=== PATIENT | male | born 1975 | race Caucasian/White ===

== ENCOUNTER 2018-01-13 04:32 | Emergency (ER) | payer OTHER, SELFPAY ==
[2018-01-13 04:34] VITALS: BP 141/80; PULSE 84; RESP 16; TEMP 36.9; O2SAT 98; BMI 28.6
--- NOTE | 2018-01-13 04:41 | EKG12_ITS ---
Test Reason : SYNCOPE Blood Pressure : / mmHG Vent. Rate : 074 BPM Atrial Rate : 074 BPM P-R Int : 148 ms QRS Dur : 114 ms QT Int : 380 ms P-R-T Axes : 022 -13 027 degrees QTc Int : 421 ms Normal sinus rhythm Normal ECG Confirmed by PAPO FRANCO, FREDDY ([id number]), editor in chief newspaper DENISSE LIM ([id number] on 01/14/2018 3:49:37 PM Referred By: DR TORIBIO Confirmed By:FREDDY BARROS MD
--- NOTE | 2018-01-13 04:41 | CT_ITS ---
HISTORY: SYNCOPE THIS AM X 2,ELEVATED BP,DIZZY AND LIGHT HEADED TECHNIQUE: Multiple axial images were obtained of the brain without intravenous contrast. A radiation dose optimization technique was used for this scan. IV Contrast dosage and agent: None. COMPARISON: None FINDINGS: The ventricles are normal in size. Normal barrett-white matter differentiation. No intracranial mass, hemorrhage, or acute intracranial disease. Posterior fossa structures are on remarkable. No suspicious extra-axial fluid collection. Extensive pansinusitis. No associated orbital disease is seen. CT/Brain/Head without Contrast IMPRESSION: 1. Normal CT brain without contrast. 2. Extensive pansinusitis. Individualized dose optimization techniques were used for this CT. at 0547 Reported and signed by: Raheel Wilson MD Electronically Signed: Raheel Wilson, at 5:22 EST Tel , Service support ,
[2018-01-13 04:46] VITALS: BP 117/73; BP 128/81; BP 133/76; PULSE 75; PULSE 84; PULSE 90
[2018-01-13] MEDS: 0.9% Normal Saline 1,000 ML 1000 ML IV (04:50)
--- NOTE | 2018-01-13 04:51 | ED.DCSUM_ITS ---
- ER Visit Summary Date of Service: 01/13/18 Chief Complaint: Syncopal episode History of Present Illness: The patient is a 42 M presents to the emergency department after syncopal episode. Patient states he woke in his normal state of health. He states he was getting ready for work and was going to coffee. He states that he was walking towards another room. He became acutely nauseated and lightheaded. He states the next thing he knew, he was on the ground. He did strike his nose across the table. He states he got back up because he was feeling better. He states he got lightheaded again with standing. He laid down but did not pass out. Patient denies any prior history of syncope. He denies any chest pain or shortness of breath. He denies any family history of sudden cardiac . He does take Vicodin for chronic back pain, but has not taken any today. He states yesterday, he had some chills and what he felt was a head cold. States today when he woke, he was feeling improved. Physical Examination: Vital signs reviewed General: Well-nourished, well-developed Head: Normocephalic, abrasion across the bridge of the nose without step-off, no nasal septal hematoma Eyes: Pupils equal and reactive, extraocular muscles intact Neck, supple, no lymphadenopathy Heart: Regular rate and rhythm Respiratory: No distress, clear bilaterally Abdomen: Soft, nontender, nondistended, no peritoneal signs Back: Nontender Extremities: Nontender, no edema, no cords Skin: Normal color no rash Neuro: Alert and oriented, no focal or lateralizing deficits Test Results: [] Emergency Department Course and Treatment: In review of the patient's records, he did have a syncopal event about a year ago. When I asked him about this, he states that he got an IV antibiotic pain management prior to a myelogram and had vasovagal syncope. At that time, he underwent stress testing which was normal. My suspicion is that this is likely vasovagal. He states that he got lightheaded, nauseated, diaphoretic and then passed out. He had no chest pain. I did obtain an EKG. It was sinus rhythm without acute ischemic change. It was unchanged from his prior EKG. There is no WPW or prolonged QT. Screening labs do show mild leukocytosis but were otherwise unremarkable. He is not anemic. His orthostatics were negative. Chest x-ray shows no evidence of enlarged cardiac silhouette, volume overload, or other dangerous process. The patient did strike his head, I did obtain a head CT. This shows pansinusitis, but no acute intracranial abnormality. I do feel this explains his head cold. I am going to treat the patient with Augmentin given his infectious symptoms. I do feel that he is safe for outpatient therapy given his unremarkable workup here, history of syncope, recent negative stress testing and echo. He is comfortable with this plan of care. The patient will be discharged home. Treatment Plan: [] Disposition: [] Impression: 1. Vasovagal syncope 2. Acute sinusitis This note was generated with [employer] dictation software. It may contain incorrect words, spelling, and punctuation that were not noted in review of the chart prior to signing ED Disposition - Plan for ED Patient: Chief Complaint: Syncope Instructions: ED Sinusitis Abx Tx, ED Syncope Vasovagal Prescriptions: Amox/Clavulanate Tablet [Augmentin Tablet] 875 mg PO Q12H #20 tab Referrals: Pranay Dietrich MD [Primary Care Provider] -
[2018-01-13 04:59] LABS: Absolute Lymphocyte Count 1.65 X10^3/ul (0.83-4.51); Absolute Neutrophil Count 10.5 X10^3/uL (2.0-7.7); Basophil# 0.01 X10^3/uL; Basophil% 0.1 % (0-1); Eosinophil# 0.08 X10^3/uL; Eosinophils% 0.6 % (0-5); Hematocrit 47.1 % (40-54); Hemoglobin 16.1 g/dl (13.0-16.5); Lymphocyte # 1.65 X10^3/ul (4.0); Lymphocyte % 12.3 % (19-41); Mean Corp Hgb Conc 34.2 g/gl (32-36); Mean Corpuscular Hgb 30.4 pg (27.0-32.0); Mean Corpuscular Volume 88.9 fL (80-94); Monocyte# 1.15 X10^3/uL; Monocyte% 8.6 % (0-10); Neutrophil # 10.48 X10^3/uL (2.7-7.7); Neutrophil % 78.3 % (47-70); Platelet Count 205 K/mm3 (150-450); RBC Distribution Width CV 12.5 % (11.6-14.6); RBC Distribution Width SD 39.7 fl (35.1-43.9); White Blood Count 13.4 K/mm3 (4.4-11.0)
--- NOTE | 2018-01-13 05:00 | RAD_ITS ---
HISTORY: Shortness of breath. Chest pain. Comparison: None Findings: AP lordotic technique. Normal heart size. EKG leads in place. No vascular congestion, pleural effusion, or pulmonary infiltration. No pneumothorax. The bony thorax appears intact. IMPRESSION: No active cardiopulmonary disease. at 0507 Reported and signed by: Raheel Wilson MD Electronically Signed: Raheel Wilson, at 5:24 EST Tel , Service support , RAD/Chest 1 View (Portable)
[2018-01-13 05:01] LABS: POSITIVE COUNT NO; POSITIVE DIFFERENTIAL NO; POSITIVE MORPHOLOGY NO
[2018-01-13 05:08] LABS: AST(SGOT) 17 U/L (15-37); Alanine Aminotransfer ALT/SGPT 30 U/L (16-61); Alkaline Phosphatase 57 U/L (45-117); Anion Gap 8 (5-15); BUN 12 mg/dL (7-18); Chloride 105 mmol/L (98-107); EST Glomerular Filtration Rate 88 mL/min (>60); Est Glom Filt Rate - Afr Amer 106 mL/min (>60); Estimated Creatinine Clearance 110.97 ml/min; Glucose 92 mg/dL (74-106); Potassium 3.6 mmol/L (3.5-5.1); Sodium Level 138 mmol/L (136-145)
--- NOTE | 2018-01-13 05:32 | ED.RN ---
NO OLD EKGS IN MUSE
[2018-01-13] MEDS: Amox/Clavulanate 875 MG Tablet PO (05:37)
[2018-01-13 05:41] VITALS: BP 137/66; PULSE 81; RESP 18; O2SAT 99
== END 2018-01-13 05:42 | disposition home or self-care (01) ==
LOC: ED 05:12
PROVIDERS: Emergency Provider Emergency Medicine; Family Provider Family Medicine; PCP Family Medicine
DX: R55 Syncope and collapse (principal); J01.40 Acute pansinusitis, unspecified; M54.9 Dorsalgia, unspecified; G89.29 Other chronic pain; Z79.891 Long term (current) use of opiate analgesic
CPT/HCPCS: 70450; 71045; 80053; 84484; 85025; 93005; 96360; 99285; J7030; A4216

== ENCOUNTER 2018-01-30 08:17 | Outpatient (RCR) | payer OTHER, SELFPAY ==
--- NOTE | 2018-01-30 19:59 | HP.FCE ---
HP OT Functional Capacity Eval - Task Lift Floor (Occasional 1-33% of Day): 75 lbs Floor (Frequent 34-66% of Day): 40 lbs Floor (Constant 67-100% of Day): 20 lbs Floor PDL: Medium-Heavy Knee (Occasional 1-33% of Day): 75 lbs Knee (Frequent 34-66% of Day): 55 lbs Knee (Constant 67-100% of Day): 22 lbs Knee PDL: Medium-Heavy Waist (Occasional 1-33% of Day): 85 lbs Waist (Frequent 34-66% of Day): 60 lbs Waist (Constant 67-100% of Day): 24 lbs Waist PDL: Medium-Heavy Shoulder (Occasional 1-33% of Day): 60 lbs Shoulder (Frequent 34-66% of Day): 50 lbs Shoulder (Constant 67-100% of Day): 20 lbs Shoulder PDL: Medium Overhead (Occasional 1-33% of Day): 65 lbs Overhead (Frequent 34-66% of Day): 50 lbs Overhead (Constant 67-100% of Day): 20 lbs Overhead PDL: Medium - Work Activity/Posture Kneeling: Occasional Ability (1-33% of day) Reaching out: Frequent Ability (34-66% of day) Reaching up: Frequent Ability (34-66% of day) Sitting: Frequent Ability (34-66% of day) Walking: Frequent Ability (34-66% of day) Standing: Frequent Ability (34-66% of day) - Reference Duration Sedentary Sedentary Light Light Light Medium Medium Medium Heavy Very Heavy Heavy Occasional (0-33% of day) Frequent (34-66% of day) Constant (67-100% of day) 10 # Negligible Negligible 15 # 8 # Negligible 20 # 10# Negli. 35 # 18 # 7 # 50 # 25 # 10 # 75 # 100 # >100 # 38 # 50 # >50 # 15 # 20 # >20 # - Patient Information Height: 1.82 m Weight:: 99.507 kg Hand Dominance: R BP (Medication Use/Usual Values per pt report): No - Medical History Medical History Including Restrictions: No medical restirctions given to Pt. by Dr. Pappas's office. OT additionally called to confirm no restictions. - Diagnoses Diagnoses: Current: He was current patient for Dr. Pappas for lumbar degeneration and bulging disc per MRI report from november of 2017. PMHX: chronic low back issue starting about 15 years ago, borderline hyperlipedemia. Medications: Ibrophen as needed, no narcarotics for two weeks and feeling well, - Symptoms Symptoms: Pt. noted that year ago has increased low back pain in which it was hard to even walk. However, with band management program over last year and physical therapy at [facility]. Noted that 15 years ago had fallen from 4 foot ladder and only needed one day off. - Pain Pain: Pt., Xander, noted he is not in pain this morning. He is no longer taking pain medications. He did not take pain medications thing morning. He has not needed to take any of the narcotics prescribed for last two weeks. Explained he recently has lost 31 lbs and that has been liang if helpping with some of his low back pain. He further edxplained he is to take ibprohen as needed. He did [place] any [place] [facility] and has not had to take any within the last four days. Alma Delia worked 3.5 hours prior to [facility] [place] Had 2 hour break for E and then will be returning to work at [employer] for another 3.5 hours prior to returning home. For pain management program he has been seeing Dr. Pappas for last year and has completed 5 injections from Pt. report. Noted he feels last injection was over three months ago, and further noted believes it was around 'August'. Noted that he completed PT at [facility] for 6 weeks which helped alleviate back pain.He has continued with OT exercises and lost weight and noted that change in habits have significant helpped to reduce lumbar pain. Xander noted that pain has not been issue for last few months. \. Pre-testing: Aditi Questionnaire: 0. Post testing: Aditi Questionnaire: 0. Oswestry Low Back index: 0/50 - Work History Work History: Pt. has worked that at [employer] or last three years. Prior to [employer] he noted he worked 10 years at [employer] and 10 years at [employer]. - Behavioral Behavioral: Pleasant and cooperative. 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 He was pleasant and cooperative with all tasks asked of him. - ADLS ADLS: He and are leaving at begining of year for [place] so that patient can start job. Pt. [place] [address]. Lives in two story home with and two step children and also has custody of four grandchildren. There are three stpes to get into home, 16 steps to get upstairs, 16 stairs to basement with handrails on oneside. No longer has animals on farm to care. He is (i) in all ADL/IADLs. 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 - Physical Examination Physical Examination: The purpose of this functional capacity evaluation (FCE) was to determient he release of Dr. Pappas's care for pain management. 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 He currently meets the job description provided by Pt. from employer. Starting diagnostics: Blood pressure (BP): 157/ 95 mmHg. Heart Rate (HR): 78 bpm. Maxiumum weight able to be obtained based of body weight is 131 lbs. Aerobic limiting fasting calculated based on age is as follow: 144 bpm ROM: Completed lumbar spine measurements: Inclinometric: Lumbar flexion: L1 0-89. L5 0-63. Angle: 26 degres of lumar flexion. Lumbar Extension: L1 33. L5 21. angle: 12 degrees lumbar extension. Goniometric: Lateral Lean. R 0-33. L 0-29. Hip. flexion: R 0-101, L 92. extension 0- 41, L 0-41. Negative slums test. Strength: MMT: UE. Shoulder. - Flexion: R 5/5, L 5/5. -Internal Rotation: R 5/5, L 5/5. -External Rotation: R 5/5, L 5/5. -Abduction: R 5/5, L 5/5. Elbow: Flexion: R 5/5, L 5/5. Extension: R 5/5, L 5/5. Wrist. -Flexion: R 5/5, L 5/5. -Extenion: R 5/5, L 5/5. LE MMT. Hip flexion: R 5/5, L 5/5. Adduction: R 5/5, L 5/5. Abduction: R 5/5, L 5/5. Knee flexion: R 5/5, L 5/5. Knee extension: R 5/5, L 5/5. plantarflexion: R 5/5, L 5/5. Dorsiflexion: R 5/5, L 5/5. Provactice testing of rotator cuff with empty can, lift off test,and biceps load indicates good integrity of rotator cuff with ability to complete all test with resistance when appropriate and no pain with all movements. Right Carbide Powder Processor Strength Average: 109.33 Left Carbide Powder Processor Strength Average: 114.00 Right Lateral Pinch Average: 21.00 Right Lateral Pinch Percentile: 50th Left Lateral Pinch Average: 26.33 Left Lateral Pinch Percentile: 90th Right Tripod Pinch Average: 23.66 Right Tripod Pinch Percentile: approximately 80th Left Tripod Pinch Average: 22.66 Left Tripod Pinch Percentile: approximately 80th Comments: 5 span burrer machine testing: P1 R 59 L 63. P2 R 120, L 125. p3 R 121, L 109. p4 R 104, L 105. p5 R 99 L 91 Sensation: Xander denies any numbness or tingling. Compelte semmes winstein monofliament test to B hands. He score normal for percieved touch sesnation with a score of 2.83 on all finger tips. Fine Motor: Completed purdue pegboard test to measure FMC and finger dexterity. Results as follows for one trials only: R 19. -percentile: 90th. L 16. -percentile: 74th. both: 15. -percentile: approximately 90th. R+L+both. -percentile: 92nd. Assembly 9. -percentile: below 1st Balance: Functional Reach Test: Trial 1(T1):39.5 inches. T2: 39 inches. T3: 40 inches. Average: 39.5 inches. Sharpened Romberg Balance Test: Completed with shoes off, and nondominant foot ahead of dominant foot. Eyes Open. - Feet together: 60 s- pass. - Semi tandem: 60 s- pass. - Tanden: 60 S- pass. Eyes CLosed. - Feet together: 60 s- pass. - Semi tandem: 60 s- pass. - Tanden: 60 S- pass. Pt. did exhibit 2x loss of balance with ability to self correct. Completed static romberg for additional vestibular related testing for both static balance. Completed at appropriate rate and exhibits performance needed to complete job. Functional Gait Assessment (FGA). 1. Level Surface- 3. 2. Change in Speed- 3. 3. Horizontal head Turns- 3. 4. Vertical Head turns- 3. 5. gait and pivot turn - 3. 6. Step over obstacle-3. 7. Narrow base of Support- 3. 8. Gait with eyes closed- 2. 9. ambuslating backwards- 3. 10. Steps - 3. Total: 29/30. Dynamic balance as measured through FGA is two stanrd deviations above age related peers. He exhibits dynamic balance at needed ability to complete job. - Non Material Handling Activities Bending: BP 150/83. HR 90. 02 96. 1x, 10x completed in 24 s, 10x fast completed in 15 s. Able to complete full bend, with ability to touch toes. Completed with moreno body mechanics. Some decreased spinal alignment noted with increased thoracic flexion. Able to complete change of pace and heart rate maintain. No pain with task per Pt. report. Squattinx, 10x completed in 21 s, 10x fast completed in 16 seconds. BP 136/89. HR 127. 02 95 %. Completed full squat with fair mechanics. Knees succeeded toes for some movement. Increased in pace observed for fast tasks. Tolerated well and no compensations of mechanical deficits obsered. Pt. report 0/10 pain. Kneelinx, 10x completed in 27s, 10x fast completed in 19 seconds. cervical flexion with eye gaze at floor, Balance good,a nd completed full kneel. Completed full kneel with good mechanics. Able to maintain midline during tasks. Increased in pace observed for fast tasks. Slight increased in cervical flexion with eye gaze to floor for task to help with balance. Tolerated well and no compensations of mechanical deficits observed. Minimal shortness of breath observed. Pt. report 0/10 pain. Reaching out/up: Reaching out from standinx, 10x completed 17 s, completed 10x fast 11 seconds. Completed with good spinal alignment and mechanics. Slight increased in cervical flexion with full reach forward but within normal range of body movement for task. Increased in pace noted for fast task. No compensation or mechanical changes observed. Pt. reported 0/10 pain. Reaching up. 1x, 10x, 14 seconds, 10x 8 seconds. Completed with good spinal alignment and mechanics. Slight increased in cervical hyperextenios with eye gaze to ceiling for task. Ability to complete with full overhead reach forward observed. Increased in pace noted for fast task. No compensation or mechanical changes observed. Pt. reported 0/10 pain. Walking: Slight antalgic gait but appears to be more of natural occuring than during antalgic gait due to pain. Completed fast paced walk of 100 yards in 4 mins. Post Fast paced walk diagnostics: HR 118 bpm. 02 96%. Able to complete 22 mins of walking on treadmill at speed of 3.1 mph for all 22 mins. Diagnostics post treadmill task: HR 120 bpm then decreased to 100 bpm. 02 96% Standing: Completed standing of entire second half of session. This totaled 60 mins. This shows that he is able to complete frequent standing related tasks. Pain 0/10 per Pt. report. Sitting: Completed sitting for 40 mins without issue. No compensations of adjustments needed. Pt. report 0/10. Climbing Stairs: Able to complete 180 step in 5 mins. He is able to complete stairs frequently based on performance. Pre stairs diagnostics: Heart rate: 80 bpm. 02 97%. Post Stairs Diagnostics: BP 146/101 mmHg. HR 127 bpm dyuring time it took to get BP hear rate decreased to 94 bpm. 02 95% - Dynamic Occasional Lifting Capacity Floor Lift: BP 145/87. HR 97. 02 96%. Max weight: 1x 85 lbs. Occassional: 1x 75 lbs. Frequently: 5x 40 lbs. Completed with fair body mechanics. Need for 1x cue to correct body mechqanics. Noted they got on me for that down when I did this in [place]. Once compelting cue, did well with mechanics. Increase in heart rate noted but is believe to be due to exertion as no pain behaviors noted. Pain reported at 0/10 for task. HR: 128. 02: 96% Knee Lift: Max Weight: 1x 100 lbs. Occassional: 1x 75 lbs. Frequent: 5x 55 lbs. Completed with good body mecahnics of wide base of support and spinal alignment maintain. Increase in heart rate noted which is believe to be due to exterion and not pain as not pain related behaviors, change or mechanical deficits observed. Pt. report pain at 0/10. BP: 137/84. HR 131 hearratedropped to 97 bpm during 2 mins to get blood preesure read. 02 92 Waist Lift: Max Weight: 100 lbs. Occassional: 85 lbs. Frequent: 60 lbs. Completed with good body mecahnics of wide base of support and spinal alignment maintain. No pain related behaviors, mechanical change, or mechanical deficits observed with frequently ot occassional weights. mechanical changes noted with max weight. Pt. report pain at 0/10. BP 123/89. HR 127 bpm decreased to 100 bpm while getting BP. 02: 94 Shoulder Lift: Max weight: 75. Occassional weight: 60 lbs. Frequent: 50 lbs. Completed with good body mecahnics of wide base of support and spinal alignment maintain. No pain related behaviors, mechanical change, or mechanical deficits observed with frequently and occassional weights. mechanical changes noted with max weight. Pt. report pain at 0/10. Overhead Lift: Max Weight: 70- lbs with use of lower handles. Occassional: 65. Freqent: 50 lbs with use of bottom handles. Completed with fair body mecahnics of wide base of support and spinal alignment maintained. No pain related behaviors, but slight mechanical change with minimally decreased spinal alignment. No mechanical deficits observed with frequently and occassional weights.Pt. report pain at 0/10. BP 131/88 mmHg. HR 121 bpm dropped to 93 while getting BP. 02 96% Carrying: Very mild r sided lateral lean 55 lbs. Completed with fair body mecahnics with appropriate base of support. No pain related behaviors, but slight mechanical change with minimally decreased spinal alignment due to left lateral leaning to carrying box. Box weight observed to be evenly dsitributed. No mechanical deficits observed with frequently and occassional weight. Pt. report pain at 0/10. Comments: Ending diagnostics after 5 mins seated break to complete paperwork. BP 130/82. HR 80. 02 96
--- NOTE | 2018-01-30 19:59 | HP.OTFCE.D ---
FCE D/C Summary - Discharge DAJUAN Vita VILLARREAL was seen for a one time visit for an FCE on 01/30/18 and is discharged.
--- NOTE | 2018-01-30 20:26 | HP.OTFCE_ITS ---
HP OT Functional Capacity Eval - Task Lift Floor (Occasional 1-33% of Day): 75 lbs Floor (Frequent 34-66% of Day): 40 lbs Floor (Constant 67-100% of Day): 20 lbs Floor PDL: Medium-Heavy Knee (Occasional 1-33% of Day): 75 lbs Knee (Frequent 34-66% of Day): 55 lbs Knee (Constant 67-100% of Day): 22 lbs Knee PDL: Medium-Heavy Waist (Occasional 1-33% of Day): 85 lbs Waist (Frequent 34-66% of Day): 60 lbs Waist (Constant 67-100% of Day): 24 lbs Waist PDL: Medium-Heavy Shoulder (Occasional 1-33% of Day): 60 lbs Shoulder (Frequent 34-66% of Day): 50 lbs Shoulder (Constant 67-100% of Day): 20 lbs Shoulder PDL: Medium Overhead (Occasional 1-33% of Day): 65 lbs Overhead (Frequent 34-66% of Day): 50 lbs Overhead (Constant 67-100% of Day): 20 lbs Overhead PDL: Medium - Work Activity/Posture Kneeling: Occasional Ability (1-33% of day) Reaching out: Frequent Ability (34-66% of day) Reaching up: Frequent Ability (34-66% of day) Sitting: Frequent Ability (34-66% of day) Walking: Frequent Ability (34-66% of day) Standing: Frequent Ability (34-66% of day) - Reference Duration Sedentary Sedentary Light Light Light Medium Medium Medium Heavy Very Heavy Heavy Occasional (0-33% of day) Frequent (34-66% of day) Constant (67-100% of day) 10 # Negligible Negligible 15 # 8 # Negligible 20 # 10# Negli. 35 # 18 # 7 # 50 # 25 # 10 # 75 # 100 # >100 # 38 # 50 # >50 # 15 # 20 # >20 # - Patient Information Height: 1.82 m Weight:: 99.507 kg Hand Dominance: R BP (Medication Use/Usual Values per pt report): No - Medical History Medical History Including Restrictions: No medical restirctions given to Pt. by Dr. Pappas's office. OT additionally called to confirm no restictions. - Diagnoses Diagnoses: Current: He was current patient for Dr. Pappas for lumbar degeneration and bulging disc per MRI report from november of 2017. PMHX: chronic low back issue starting about 15 years ago, borderline hyperlipedemia. Medications: Ibrophen as needed, no narcarotics for two weeks and feeling well, - Symptoms Symptoms: Pt. noted that year ago has increased low back pain in which it was hard to even walk. However, with band management program over last year and physical therapy at [facility]. Noted that 15 years ago had fallen from 4 foot ladder and only needed one day off. - Pain Pain: Pt., Xander, noted he is not in pain this morning. He is no longer taking pain medications. He did not take pain medications thing morning. He has not needed to take any of the narcotics prescribed for last two weeks. Explained he recently has lost 31 lbs and that has been liang if helpping with some of his low back pain. He further edxplained he is to take ibprohen as needed. He did not take any priro to [facility] and has not had to take any within the last four days. Alma Delia worked 3.5 hours prior to [facility]. Had 2 hour break for E and then will be returning to work at [employer] for another 3.5 hours prior to returning home. For pain management program he has been seeing Dr. Pappas for last year and has completed 5 injections from Pt. report. Noted he feels last injection was over three months ago, and further noted believes it was around 'August'. Noted that he completed PT at [facility] for 6 weeks which helped alleviate back pain.He has continued with OT exercises and lost weight and noted that change in habits have significant helpped to reduce lumbar pain. Xander noted that pain has not been issue for last few months. \. Pre-testing: Aditi Questionnaire: 0. Post testing: Aditi Questionnaire: 0. Oswestry Low Back index: 0/50 - Work History Work History: Pt. has worked that at [employer] or last three years. Prior to [employer] he noted he worked 10 years at [employer] and 10 years at [employer]. - Behavioral Behavioral: Pleasant and cooperative. 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 He was pleasant and cooperative with all tasks asked of him. - ADLS ADLS: He and are leaving at begining of year for [place] so that patient can start job. Pt. [place] [address] Lives in two story home with and two step children and also has custody of four grandchildren. There are three stpes to get into home, 16 steps to get upstairs, 16 stairs to basement with handrails on oneside. No longer has animals on farm to care. He is (i) in all ADL/IADLs. 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 - Physical Examination Physical Examination: The purpose of this functional capacity evaluation (FCE) was to determient he release of Dr. Pappas's care for pain management. This was a job specific FCE in which was to determien Reginald's ability to complet repetive and material handling techniques for a new industrials job with [employer] in [place]. He currently meets the job description provided by Pt. from employer. Starting diagnostics: Blood pressure (BP): 157/ 95 mmHg. Heart Rate (HR): 78 bpm. Maxiumum weight able to be obtained based of body weight is 131 lbs. Aerobic limiting fasting calculated based on age is as follow: 144 bpm ROM: Completed lumbar spine measurements: Inclinometric: Lumbar flexion: L1 0-89. L5 0-63. Angle: 26 degres of lumar flexion. Lumbar Extension: L1 33. L5 21. angle: 12 degrees lumbar extension. Goniometric: Lateral Lean. R 0- 33. L 0-29. Hip. flexion: R 0-101, L 92. extension 0- 41, L 0-41. Negative slums test. Strength: MMT: UE. Shoulder. - Flexion: R 5/5, L 5/5. -Internal Rotation: R 5/5, L 5/5. -External Rotation: R 5/5, L 5/5. -Abduction: R 5/5, L 5/5. Elbow: Flexion: R 5/5, L 5/5. Extension: R 5/5, L 5/5. Wrist. -Flexion: R 5/5, L 5/5. -Extenion: R 5/5, L 5/5. LE MMT. Hip flexion: R 5/5, L 5/5. Adduction: R 5/5, L 5/5. Abduction: R 5/5, L 5/5. Knee flexion: R 5/5, L 5/5. Knee extension: R 5/5, L 5/5. plantarflexion: R 5/5, L 5/5. Dorsiflexion: R 5/5, L 5/5. Provactice testing of rotator cuff with empty can, lift off test, and biceps load indicates good integrity of rotator cuff with ability to complete all test with resistance when appropriate and no pain with all movements. 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 P2 R 120, L 125. p3 R 121, L 109. p4 R 104, L 105. p5 R 99 L 91 Sensation: Xander denies any numbness or tingling. Compelte semmes winstein monofliament test to B hands. He score normal for percieved touch sesnation with a score of 2.83 on all finger tips. Fine Motor: Completed purdue pegboard test to measure FMC and finger dexterity. Results as follows for one trials only: R 19. -percentile: 90th. L 16. - percentile: 74th. both: 15. -percentile: approximately 90th. R+L+both. - percentile: 92nd. Assembly 9. -percentile: below 1st Balance: Functional Reach Test: Trial 1(T1):39.5 inches. T2: 39 inches. T3: 40 inches. Average: 39.5 inches. Sharpened Romberg Balance Test: Completed with shoes off, and nondominant foot ahead of dominant foot. Eyes Open. - Feet together: 60 s- pass. - Semi tandem: 60 s- pass. - Tanden: 60 S- pass. Eyes CLosed. - Feet together: 60 s- pass. - Semi tandem: 60 s- pass. - Tanden: 60 S- pass. Pt. did exhibit 2x loss of balance with ability to self correct. Completed static romberg for additional vestibular related testing for both static balance. Completed at appropriate rate and exhibits performance needed to complete job. Functional Gait Assessment (FGA). 1. Level Surface- 3. 2. Change in Speed- 3. 3. Horizontal head Turns- 3. 4. Vertical Head turns- 3. 5. gait and pivot turn - 3. 6. Step over obstacle-3. 7. Narrow base of Support- 3. 8. Gait with eyes closed- 2. 9. ambuslating backwards- 3. 10. Steps - 3. Total: 29/30. Dynamic balance as measured through FGA is two stanrd deviations above age related peers. He exhibits dynamic balance at needed ability to complete job. - Non Material Handling Activities Bending: BP 150/83. HR 90. 02 96. 1x, 10x completed in 24 s, 10x fast completed in 15 s. Able to complete full bend, with ability to touch toes. Completed with moreno body mechanics. Some decreased spinal alignment noted with increased thoracic flexion. Able to complete change of pace and heart rate maintain. No pain with task per Pt. report. Squattinx, 10x completed in 21 s, 10x fast completed in 16 seconds. BP 136/89. HR 127. 02 95 %. Completed full squat with fair mechanics. Knees succeeded toes for some movement. Increased in pace observed for fast tasks. Tolerated well and no compensations of mechanical deficits obsered. Pt. report 0/10 pain. Kneelinx, 10x completed in 27s, 10x fast completed in 19 seconds. cervical flexion with eye gaze at floor, Balance good,a nd completed full kneel. Completed full kneel with good mechanics. Able to maintain midline during tasks. Increased in pace observed for fast tasks. Slight increased in cervical flexion with eye gaze to floor for task to help with balance. Tolerated well and no compensations of mechanical deficits observed. Minimal shortness of breath observed. Pt. report 0/10 pain. Reaching out/up: Reaching out from standinx, 10x completed 17 s, completed 10x fast 11 seconds. Completed with good spinal alignment and mechanics. Slight increased in cervical flexion with full reach forward but within normal range of body movement for task. Increased in pace noted for fast task. No compensation or mechanical changes observed. Pt. reported 0/10 pain. Reaching up. 1x, 10x, 14 seconds, 10x 8 seconds. Completed with good spinal alignment and mechanics. Slight increased in cervical hyperextenios with eye gaze to ceiling for task. Ability to complete with full overhead reach forward observed. Increased in pace noted for fast task. No compensation or mechanical changes observed. Pt. reported 0/10 pain. Walking: Slight antalgic gait but appears to be more of natural occuring than during antalgic gait due to pain. Completed fast paced walk of 100 yards in 4 mins. Post Fast paced walk diagnostics: HR 118 bpm. 02 96%. Able to complete 22 mins of walking on treadmill at speed of 3.1 mph for all 22 mins. Diagnostics post treadmill task: HR 120 bpm then decreased to 100 bpm. 02 96% Standing: Completed standing of entire second half of session. This totaled 60 mins. This shows that he is able to complete frequent standing related tasks. Pain 0/10 per Pt. report. Sitting: Completed sitting for 40 mins without issue. No compensations of adjustments needed. Pt. report 0/10. Climbing Stairs: Able to complete 180 step in 5 mins. He is able to complete stairs frequently based on performance. Pre stairs diagnostics: Heart rate: 80 bpm. 02 97%. Post Stairs Diagnostics: BP 146/101 mmHg. HR 127 bpm dyuring time it took to get BP hear rate decreased to 94 bpm. 02 95% - Dynamic Occasional Lifting Capacity Floor Lift: BP 145/87. HR 97. 02 96%. Max weight: 1x 85 lbs. Occassional: 1x 75 lbs. Frequently: 5x 40 lbs. Completed with fair body mechanics. Need for 1x cue to correct body mechqanics. Noted they got on me for that down when I did this in [place]. Once compelting cue, did well with mechanics. Increase in heart rate noted but is believe to be due to exertion as no pain behaviors noted. Pain reported at 0/10 for task. HR: 128. 02: 96% Knee Lift: Max Weight: 1x 100 lbs. Occassional: 1x 75 lbs. Frequent: 5x 55 lbs. Completed with good body mecahnics of wide base of support and spinal alignment maintain. Increase in heart rate noted which is believe to be due to exterion and not pain as not pain related behaviors, change or mechanical deficits observed. Pt. report pain at 0/10. BP: 137/84. HR 131 hearratedropped to 97 bpm during 2 mins to get blood preesure read. 02 92 Waist Lift: Max Weight: 100 lbs. Occassional: 85 lbs. Frequent: 60 lbs. Completed with good body mecahnics of wide base of support and spinal alignment maintain. No pain related behaviors, mechanical change, or mechanical deficits observed with frequently ot occassional weights. mechanical changes noted with max weight. Pt. report pain at 0/10. BP 123/89. HR 127 bpm decreased to 100 bpm while getting BP. 02: 94 Shoulder Lift: Max weight: 75. Occassional weight: 60 lbs. Frequent: 50 lbs. Completed with good body mecahnics of wide base of support and spinal alignment maintain. No pain related behaviors, mechanical change, or mechanical deficits observed with frequently and occassional weights. mechanical changes noted with max weight. Pt. report pain at 0/10. Overhead Lift: Max Weight: 70- lbs with use of lower handles. Occassional: 65. Freqent: 50 lbs with use of bottom handles. Completed with fair body mecahnics of wide base of support and spinal alignment maintained. No pain related behaviors, but slight mechanical change with minimally decreased spinal alignment. No mechanical deficits observed with frequently and occassional weights.Pt. report pain at 0/10. BP 131/88 mmHg. HR 121 bpm dropped to 93 while getting BP. 02 96% Carrying: Very mild r sided lateral lean 55 lbs. Completed with fair body mecahnics with appropriate base of support. No pain related behaviors, but slight mechanical change with minimally decreased spinal alignment due to left lateral leaning to carrying box. Box weight observed to be evenly dsitributed. No mechanical deficits observed with frequently and occassional weight. Pt. report pain at 0/10. Comments: Ending diagnostics after 5 mins seated break to complete paperwork. BP 130/82. HR 80. 02 96
--- NOTE | 2018-02-06 10:57 | HP.FCE ---
HP OT Functional Capacity Eval - Task Lift Floor (Occasional 1-33% of Day): 75 lbs Floor (Frequent 34-66% of Day): 40 lbs Floor (Constant 67-100% of Day): 20 lbs Floor PDL: Medium-Heavy Knee (Occasional 1-33% of Day): 75 lbs Knee (Frequent 34-66% of Day): 55 lbs Knee (Constant 67-100% of Day): 22 lbs Knee PDL: Medium-Heavy Waist (Occasional 1-33% of Day): 85 lbs Waist (Frequent 34-66% of Day): 60 lbs Waist (Constant 67-100% of Day): 24 lbs Waist PDL: Medium-Heavy Shoulder (Occasional 1-33% of Day): 60 lbs Shoulder (Frequent 34-66% of Day): 50 lbs Shoulder (Constant 67-100% of Day): 20 lbs Shoulder PDL: Medium Overhead (Occasional 1-33% of Day): 65 lbs Overhead (Frequent 34-66% of Day): 50 lbs Overhead (Constant 67-100% of Day): 20 lbs Overhead PDL: Medium - Work Activity/Posture Bending: Frequent Ability (34-66% of day) Squatting: Frequent Ability (34-66% of day) Kneeling: Frequent Ability (34-66% of day) Reaching out: Frequent Ability (34-66% of day) Reaching up: Frequent Ability (34-66% of day) Sitting: Frequent Ability (34-66% of day) Walking: Frequent Ability (34-66% of day) Standing: Frequent Ability (34-66% of day) - Reference Duration Sedentary Sedentary Light Light Light Medium Medium Medium Heavy Very Heavy Heavy Occasional (0-33% of day) Frequent (34-66% of day) Constant (67-100% of day) 10 # Negligible Negligible 15 # 8 # Negligible 20 # 10# Negli. 35 # 18 # 7 # 50 # 25 # 10 # 75 # 100 # >100 # 38 # 50 # >50 # 15 # 20 # >20 # - Patient Information Height: 1.82 m Weight:: 99.507 kg Hand Dominance: R BP (Medication Use/Usual Values per pt report): No - Medical History Medical History Including Restrictions: No medical restrictions given to Pt. by Dr. Pappas's office. OT additionally called to confirm no restrictions. - Diagnoses Diagnoses: Current: He was current patient for Dr. Pappas for lumbar degeneration and bulging disc per MRI report from November of 2017. PMHX: chronic low back issue starting about 15 years ago per Pt. report, borderline hyperlipidemia per Pt. report, low bacj disorder, intervertebral disc displacement- lumbar region, intervertebral disc displacement- lumbosacral region, disc degeneration- lumbar and lumbosacral region, lumbar radiculopathy, radiculopathy- lumbosacral region. Medications: Ibuprofen as needed but has not taken in last four days. Per Pt. report he has not taken any narcotics for two weeks and feeling well. - Symptoms Symptoms: Pt. noted that year ago he started having significantly increased low back pain in which per Pt. report it was ?hard to even walk?. However, with pain management program over last year and physical therapy at [facility] he noted things ? have gotten a lot better?. Further explained that diet and exercises have also contributed to significant pain reduction. Noted that 15 years ago had fallen from 4 foot ladder and only needed one day off. Feels that?s around the time that increased low back pain had started. - Pain Pain: Pt., Xander, noted he is not in pain this morning. He is no longer taking pain medications as of the ?last few days?. He did not take pain medications this morning. Xander reports he has not needed to take any of the narcotics prescribed for last two weeks. Explained he recently has lost 31 lbs and that has been liang in helping with some of his low back pain. He further explained he is to take ibuprofen as needed. He did not take any prior to FCE and has not had to take any within the last four days. Xander worked 3.5 hours at full-time job at [employer] prior to FCE. Had 2-hour break for FCE and then will be returning to work at [employer] for another 3.5 hours prior to returning home. For pain management program he has been seeing Dr. Pappas for last year and has completed five injections per Pt. report. He notes he is not entirely sure on the amount of injections received and no further report provided. Noted he feels last injection was over three months ago, and further noted it was around 'August'. Noted that he completed PT at [facility] for 6 weeks which helped alleviate back pain. He reports he has continued with PT exercises, lost weight, and noted that change in habits have significantly helped to reduce lumbar pain. Xander noted that pain has not been issue for last few months. Pre-testing: Aditi Questionnaire: . Post testing: Aditi Questionnaire: . Oswestry Low Back index: 0/50. - Work History Work History: Pt. has been working at [employer] for last three years. 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 Further explained that once a month gets shipments for about 75 lbs. Prior to [employer] he noted he worked 10 years at [employer] and 10 years at [employer]. - Behavioral Behavioral: Pleasant and cooperative. He is motivated to get new job at [employer] in [place] as he will be completing grape pruner work than he is now and be getting paid better wages per Pt. report. He was pleasant and cooperative with all tasks asked of him. - ADLS ADLS: Xander, , and family are leaving at beginning of year for [place] so that patient can start new job in [place]. Pt. currently [place]. Lives in two- story home with and two step children. He noted he and also have custody of four grandchildren. There are three steps to get into home, 16 steps to get upstairs, 16 stairs to get to basement with handrails on one side for both upstairs and basement. 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 He is (i) in all ADL/IADLs. Xander is still driving, completing all yardwork, workouts regularly, and noted that he can make meals or grocery shop but that tends to be ?s duty to complete since she is home prior to him. 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 Further explained that once a month gets shipments for about 75 lbs. - Physical Examination Physical Examination: The purpose of this functional capacity evaluation (FCE) on this date of 01/30/18 was to determine release of referred Pt., Xander Pina?s, from Dr. Pappas's care for pain management. Dr. Pappas has referred Pt. over with request to determine the physical demands ability and Xander?s current ability to have pain management program discontinued. This was a job specific FCE to determine Xander's ability to complete repetitive and material handling techniques for a new industrial job with the [email or web address] in [place]. Starting diagnostics: Blood pressure (BP): 157/ 95 mmHg. Heart Rate (HR): 78 bpm. Maximum weight able to be obtained based of body weight is 131 lbs. Aerobic limiting fasting calculated based on age is as follow: 144 bpm ROM: Completed lumbar spine measurements: Inclinometric: Lumbar flexion: L1 0-89. L5 0-63. Angle %+- 5-10 degrees: 26 degrees of lumbar flexion. Lumbar Extension: L1 33. L5 21. Angle %+- 5-10 degrees: 12 degrees lumbar extension. Goniometric: Lateral Lean. R 0-33. L 0-29. Hip. flexion: R 0-101, L 92. extension 0- 41, L 0-41. Negative slums test. Strength: MMT: UE. Shoulder. - Flexion: R 5/5, L 5/5. -Internal Rotation: R 5/5, L 5/5. -External Rotation: R 5/5, L 5/5. -Abduction: R 5/5, L 5/5. Elbow: Flexion: R 5/5, L 5/5. Extension: R 5/5, L 5/5. Wrist. -Flexion: R 5/5, L 5/5. -Extension: R 5/5, L 5/5. LE MMT. Hip flexion: R 5/5, L 5/5. Adduction: R 5/5, L 5/5. Abduction: R 5/5, L 5/5. Knee flexion: R 5/5, L 5/5. Knee extension: R 5/5, L 5/5. plantarflexion: R 5/5, L 5/5. Dorsiflexion: R 5/5, L 5/5. Provocative testing of rotator cuff with empty can, lift off test, and biceps load indicates good integrity of rotator cuff with ability to complete all tests with resistance when appropriate and no pain with movements. Right Production Support Developer Strength Average: 109.33 Left Production Support Developer Strength Average: 114.00 Right Lateral Pinch Average: 21.00 Right Lateral Pinch Percentile: 50th Left Lateral Pinch Average: 26.33 Left Lateral Pinch Percentile: 90th Right Tripod Pinch Average: 23.66 Right Tripod Pinch Percentile: approximately 80th Left Tripod Pinch Average: 22.66 Left Tripod Pinch Percentile: approximately 80th Comments: 5 span health underwriter testing: P1 R 59 L 63. P2 R 120, L 125. p3 R 121, L 109. p4 R 104, L 105. p5 R 99 L 91 Sensation: Xander denies any numbness or tingling. Completed Winfield Sam monofilament test to bilateral hands. He scored normal for perceived touch sensation with a score of 2.83 on all finger tip pads. Fine Motor: Completed Purdue Pegboard Test to measure FMC and finger dexterity. Results as follows for one trials only: R 19. -percentile: 90th. L 16. -percentile: 74th. both: 15. -percentile: approximately 90th. R+L+Both= 50. -percentile: 92nd. Assembly 9. -percentile: below 1st Balance: Functional Reach Test: Trial 1(T1):39.5 inches. T2: 39 inches. T3: 40 inches. Average: 39.5 inches. A score above 10 inches or greater indicates a low risk of falling. Xander exhibits a score of greater than 10 inches and thus has a low risk of falling. Sharpened Romberg Balance Test: Completed with shoes off, and nondominant foot ahead of dominant foot. Eyes Open. - Feet together: 60 s- pass. - Semi tandem: 60 s- pass. - Tandem: 60 S- pass. Eyes Closed. - Feet together: 60 s- pass. - Semi tandem: 60 s- pass. - Tandem: 60 S- pass. Pt. did exhibit 2x loss of balance with ability to self-correct. Completed Static Romberg for additional vestibular related testing for static balance. Completed at appropriate rate and exhibits performance needed to complete job. Functional Gait Assessment (FGA). 1. Level Surface- 3. 2. Change in Speed- 3. 3. Horizontal head Turns- 3. 4. Vertical Head turns- 3. 5. gait and pivot turn - 3. 6. Step over obstacle-3. 7. Narrow base of Support- 3. 8. Gait with eyes closed- 2. 9. ambulating backwards- 3. 10. Steps - 3. Total: 29/30. Dynamic balance as measured through FGA is two standard deviations above age related peers. He exhibits dynamic balance at needed ability to complete job. - Non Material Handling Activities Bending: BP 150/83. HR 90. 02 96. 1x, 10x completed in 24 s, 10x fast completed in 15 s. Able to complete full bend, with ability to touch toes. Completed with fair body mechanics. Some decreased spinal alignment noted with increased thoracic flexion. Able to complete change of pace and heart rate maintain. No mechanical changes or deficits observed. No pain with task per Pt. report. Squattinx, 10x completed in 21 s, 10x fast completed in 16 seconds. BP 136/89. HR 127. 02 95 %. Completed full squat with fair mechanics. Knees succeeded toes for some movements. Increased in pace observed for fast tasks. Tolerated well and with minimal compensations observed. Pt. report 0/10 pain. Kneelinx, 10x completed in 27s, 10x fast completed in 19 seconds. Completed full kneel with good mechanics. Able to maintain midline during tasks. Increase in pace observed for fast tasks. Slight compensations with minimal mechanical changes of an increase in cervical flexion with eye gaze to floor for task to help with balance and need for 1x UE support to knee. Tolerated no mechanical deficits but slight mechanical changes observed. Minimal shortness of breath observed. Pt. report 0/10 pain. . Reaching out/up: Reaching out from standinx, 10x completed 17 s, completed 10x fast 11 seconds. Completed with good spinal alignment and mechanics. Slight increase in cervical flexion with full reach forward but within normal range of body movement for task. Increased in pace noted for fast task. Slight compensations of cervical extension and holding breath noted but no mechanical deficits observed. Pt. reported 0/10 pain. Reaching up. 1x, 10x, 14 seconds, 10x 8 seconds. Completed with good spinal alignment and mechanics. Slight increase in cervical hyperextension with eye gaze to ceiling for task. Ability to complete with full overhead reach forward observed. Increased in pace noted for fast task. No mechanical deficits observed but minimal mechanical changes. Pt. reported 0/10 pain. Walking: According to the Functional Activities Questionnaire, Xander reports being able to walk for 10-12 hours throughout the day. Today he exhibited slight antalgic gait but appears to be more of natural occurring then antalgic gait due to pain. Completed fast paced walk of 100 yards in 4 mins. Post Fast paced walk diagnostics: HR 118 bpm. 02 96%. Able to complete 22 mins of walking on treadmill at speed of 3.1 mph for all 22 mins. Diagnostics post treadmill task: HR 120 bpm then decreased to 100 bpm. 02 96% Standing: According to the Functional Activities Questionnaire, Xander reports being able to stand for 10-12 hours and noted this is his most comfortable position. Today he completed standing of entire second half of session. This totaled 60 mins. This shows that he is able to complete frequent standing related tasks. Pain 0/10 per Pt. report. Sitting: Completed sitting for 40 mins without issue. No compensations of adjustments needed. Pt. report 0/10. Climbing Stairs: Able to complete 180 steps in 5 mins. With this performance he would be classified at continuous ability to complete stairs. However, he did exhibit some increased shortness of breath as well as increase in heart rate and blood pressure and it may be more benefical to complete at more frequent rate. Pre-stairs diagnostics: Heart rate: 80 bpm. 02 97%. Post -Stairs Diagnostics: BP 146/101 mmHg. HR 127 bpm during time it took to get BP hear rate decreased to 94 bpm. 02 95% - Dynamic Occasional Lifting Capacity Floor Lift: BP 145/87. HR 97. 02 96%. Max weight: 1x 85 lbs. Occasional: 1x 75 lbs. Frequently: 5x 40 lbs. Completed with fair body mechanics. Need for 1x cue to correct body mechanics. Noted they got on me for that down when I did this in [place]. Once completing cue, did well with mechanics. Increase in heart rate noted but is believed to be due to exertion as no pain behaviors noted. Pain reported at 0/10 for task. HR: 128. 02: 96% Knee Lift: Max Weight: 1x 100 lbs. Occasional: 1x 75 lbs. Frequent: 5x 55 lbs. Completed with good body mechanics of wide base of support and ability to maintain spinal alignment. Increase in heart rate noted which is believed to be due to exertion and not pain as no pain related behaviors observed, and no change or mechanical deficits observed during tasks. Pt. report pain at 0/10. BP: 137/84. HR 131 heart rate dropped to 97 bpm during 2 mins to get blood pressure read. 02 92 Waist Lift: Max Weight: 100 lbs. Occassional: 1x 85 lbs. Frequent: 5x 60 lbs. Completed with good body mecahnics of wide base of support and spinal alignment maintain. No pain related behaviors, mechanical change, or mechanical deficits observed with frequently ot occassional weights. mechanical changes noted with max weight. Pt. report pain at 0/10. BP 123/89. HR 127 bpm decreased to 100 bpm while getting BP. 02: 94 Shoulder Lift: Max weight: 75. Occasional weight: 1x60 lbs. Frequent: 5x50 lbs. Completed with good body mechanics of wide base of support and spinal alignment. No pain related behaviors, mechanical change, or mechanical deficits observed with frequently and occasional weights. Mechanical changes noted with max weight. Pt. report pain at 0/10. Overhead Lift: Max Weight: 70- lbs with use of lower handles. Occasional: 65. Frequent: 50 lbs with use of bottom handles. Completed with fair body mechanics of wide base of support and spinal alignment maintained. No pain related behaviors, but slight mechanical change with minimally decreased spinal alignment. No mechanical deficits observed with frequently and occasional weights. Pt. report pain at 0/10. BP 131/88 mmHg. HR 121 bpm dropped to 93 while getting BP. 02 96% Carrying: Very mild r sided lateral lean 55 lbs. Completed with fair body mechanics with appropriate base of support. No pain related behaviors, but slight mechanical change with minimally decreased spinal alignment due to left lateral leaning to carrying box. Box weight observed to be slight increase distributed to left side. No mechanical deficits observed. Pt. report pain at 0/10. Comments: Ending diagnostics after 5 mins seated break to complete ending paperwork. BP 130/82. HR 80. 02 96. He noted he would be returning to work at [employer] at completion of FCE.
== END 2018-01-30 19:00 | disposition home or self-care (01) ==
LOC: OT 08:17
PROVIDERS: Family Provider Family Medicine; PCP Family Medicine; Referring Provider Anesthesiology Pain Medicine; Visit Provider Anesthesiology Pain Medicine
DX: Z02.1 Encounter for pre-employment examination (principal)
CPT/HCPCS: 97750